=== PATIENT | female | born 1970 | race Two or more races ===

== ENCOUNTER 2017-09-17 12:03 | Emergency (ER) ==
[2017-09-17 12:12] VITALS: BP 146/100; TEMP 98.2; BMI 33.1
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
[2017-09-17 13:10] LABS: BILIRUBIN,URINE Negative (NEGATIVE); KETONES,URINE Trace (NEGATIVE); LEUKOCYTE ESTERASE ,URINE Negative (NEGATIVE); NITRITE,URINE Positive (NEGATIVE); PH,URINE 5.5 (5-9); PROTEIN,URINE Negative (NEGATIVE); URINE, BLOOD Negative (NEGATIVE)
[2017-09-17 13:12] LABS: ADD URINE MICROSCOPIC YES
[2017-09-17 13:26] LABS: BACTERIA,URINE 3+ (NOT PRESENT)
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
== END 2017-09-17 14:25 | disposition home or self-care (01) ==
LOC: ED 12:03
DX: M25.512 Pain in left shoulder (principal); M25.531 Pain in right wrist; M54.2 Cervicalgia; M54.9 Dorsalgia, unspecified; R51 Headache; V73.5XXA Driver of bus injured in collision with car, pick-up truck or van in traffic accident, initial encounter; Y99.0 Civilian activity done for income or pay
CPT/HCPCS: 81001; 87086; 87186; 99283

== ENCOUNTER 2018-12-08 12:11 | Outpatient (CLI) | payer OTHER, MEDICAID ==
[2017-09-29 11:10] VITALS: BMI 33.1
== END 2018-12-08 12:12 | disposition home or self-care (01) ==
LOC: RHC-LAB 12:11
PROVIDERS: ATTEND Nurse Practitioner Family
DX: R05 Cough (principal)
CPT/HCPCS: 87502; 87651

== ENCOUNTER 2019-06-27 10:43 | Outpatient (CLI) ==
[2017-09-29 11:10] VITALS: BMI 33.1
== END 2019-06-27 10:44 | disposition home or self-care (01) ==
LOC: RHC-LAB 10:43
PROVIDERS: ATTEND Nurse Practitioner Family
DX: R73.9 Hyperglycemia, unspecified (principal); Z00.00 Encounter for general adult medical examination without abnormal findings; L65.9 Nonscarring hair loss, unspecified; N92.6 Irregular menstruation, unspecified
CPT/HCPCS: 36415; 80053; 80061; 82672; 82728; 83001; 83002; 83036; 83540; 84443; 85025

== ENCOUNTER 2019-06-30 09:24 | Outpatient (CLI) ==
[2017-09-29 11:10] VITALS: BMI 33.1
--- NOTE | 2019-06-30 11:41 | MAMMO ---
EXAM: Bilateral digital screening mammogram (2-D and 3-D) History: Screening Comparison: Bilateral mammogram 07/22/2016 Findings: MLO and CC views of bilateral breasts demonstrate scattered fibroglandular breast parenchy ma. CAD was reviewed by the radiologist. Tomosynthesis was performed. There are no dominant masses , no suspicious microcalcifications and no architectural distortions. Impression: Stable negative mammogram. Recommend followup routine screening mammography in 1 year. BI-RADS 1, negative
== END 2019-06-30 09:25 | disposition home or self-care (01) ==
LOC: EDSEX → RAD 09:24
PROVIDERS: ATTEND Nurse Practitioner Family
DX: Z12.31 Encounter for screening mammogram for malignant neoplasm of breast (principal)